=== PATIENT | male | born 1945 | race Two or more races ===

== ENCOUNTER → 2016-07-27 | Outpatient (CLI) | payer MEDICARE, BC | END | disposition home or self-care (01) | LOC: US 13:16 | PROVIDERS: ATTEND Orthopaedic Surgery Sports Medicine | DX: M79.604 Pain in right leg (principal); M71.21 Synovial cyst of popliteal space [Baker], right knee; M79.89 Other specified soft tissue disorders | CPT/HCPCS: 93970 ==

== ENCOUNTER → 2017-05-31 | Outpatient (CLI) | payer MEDICARE, BC ==
[~2017-05-31] MED LIST: IOHEXOL-350 100 ML BOTTLE ONE
== END | disposition home or self-care (01) ==
LOC: CT 07:29
PROVIDERS: ATTEND Family Medicine
DX: K76.89 Other specified diseases of liver (principal); R06.09 Other forms of dyspnea
CPT/HCPCS: 71275; Q9967

== ENCOUNTER 2018-08-09 22:00 | Emergency (ER) | payer MEDICARE, BC ==
[~2018-08-09] VITALS: Ht 170.2 cm; Wt 81.0 kg
[2018-08-09 22:43] VITALS: BP 136/66
== END 2018-08-09 22:43 | disposition home or self-care (01) ==
LOC: ER 22:00
DX: S09.8XXA Other specified injuries of head, initial encounter (principal); S00.91XA Abrasion of unspecified part of head, initial encounter; E78.00 Pure hypercholesterolemia, unspecified; W01.0XXA Fall on same level from slipping, tripping and stumbling without subsequent striking against object, initial encounter; Y93.9 Activity, unspecified; Y92.9 Unspecified place or not applicable
CPT/HCPCS: 99284